=== PATIENT | female | born 1935 | race Caucasian/White ===

== ENCOUNTER → 2017-04-07 | Outpatient (CLI) | payer OTHER, MEDICARE | LOC: FIMAGING 14:42 | PROVIDERS: ATTEND Internal Medicine | DX: R05 Cough (principal); J98.4 Other disorders of lung ==

== ENCOUNTER → 2017-06-16 | Outpatient (CLI) | payer OTHER, MEDICARE | LOC: FIMAGING 15:22 | PROVIDERS: ATTEND Internal Medicine | DX: M25.562 Pain in left knee (principal); Z96.652 Presence of left artificial knee joint ==